=== PATIENT | male | born 1990 | race Caucasian/White ===

== ENCOUNTER 2019-11-01 00:30 | Observation (INO) | payer OTHER, SELFPAY ==
[2019-11-01 03:40] VITALS: BMI 39.6
[2019-11-01] MEDS ORDERED: MORPHINE 4 MG/ML SYR IV PRN (03:41)
[2019-11-01] MEDS ORDERED: ONDANSETRON 4 MG/2 ML VIAL IV PRN (03:41)
[2019-11-01] MEDS: Ringers Lactate 1,000 ML IV SCH ×3 (04:29→17:09)
[2019-11-01] MEDS ORDERED: CIPROFLOXACIN 400mg IV 400 MG/200 ML BAG IV SCH (05:00)
[2019-11-01] MEDS: METRONIDAZOLE 500mg IVPB 500 MG/100 ML BAG IV SCH ×2 (05:55→12:04)
[2019-11-01 06:19] LABS: Absolute Lymphocytes (CBC) 1.9 K/uL (0.7-4.9); Basophils % 0.2 % (0-1.3); Hematocrit 44.3 % (39.6-49.0); Lymphocytes % 14.4 % (15.3-44.8); MPV 9.9 fL (7.6-11.3); RBC Red Blood Cell Count 5.01 M/uL (4.33-5.43)
[2019-11-01] MEDS ORDERED: propofoL 200 MG/20 ML VIAL IV ONE (13:34)
[2019-11-01] MEDS ORDERED: ONDANSETRON 4 MG/2 ML VIAL ONE (13:34)
[2019-11-01] MEDS ORDERED: MIDAZOLAM HCL 2 MG/2 ML INJ ONE (13:34)
[2019-11-01] MEDS ORDERED: FENTANYL CITR 100 MCG/2 ML ONE (13:34)
[2019-11-01] MEDS ORDERED: GLYCOPYRROLATE 0.2 MG/ML SYR ONE (13:34)
[2019-11-01] MEDS ORDERED: LIDOCAINE 1% MPF 5 ML VIAL ONE (13:35)
[2019-11-01] MEDS ORDERED: MORPHINE 10 MG/ML VIAL ONE (13:35)
[2019-11-01] MEDS ORDERED: NEOSTIGMINE 1 MG/ML -5 ML ONE (13:35)
[2019-11-01] MEDS ORDERED: dexAMETHasone 4 MG/ML VIAL ONE (13:35)
[2019-11-01] MEDS ORDERED: ROCURONIUM 50 MG/5 ML VIAL IV ONE ×2 (13:35→14:46)
--- NOTE | 2019-11-01 13:56 | P.HP ---
Date of Service: 11/01/19 PC: This 29-year-old male presents to [facility] emergency room with severe right lower quadrant abdominal pain for diagnosis treatment. HPC: Patient is woke up yesterday with a abdominal pain. Was being made periumbilical. Over the course today in migrated to the right lower quadrant. At the current time he is comfortable. PMH: Hypertension in the past, resolved after having his sleep apnea treated. PSHx: Negative SOC: No known allergies, was on no medication but just reveals he is on Phen- Phen SYS REVIEW: No cough, wheeze, shortness of breath. No chest pain or palpitations. No urinary complaints O/E awake alert vital signs are stable HEENT: Within normal limits Chest: Clear ABD: Tender in the right lower quadrant. Mild guarding LOCO: Intact DATA: Elevated white cell count, CT scan demonstrates acute appendicitis IMPRESSION: Acute abdomen with appendicitis PLAN: I will take him the operating room for laparoscopic possible open appendectomy. The risks of this procedure have been discussed. The possibility of bleeding, infection, injury to bowel and blood vessels were described. The possible need for an open and/or further surgeries and procedures was discussed. He understands and wants us to proceed.
[2019-11-01] MEDS ORDERED: ETOMIDATE 20 MG/10 ML VIAL IV ONE (14:07)
[2019-11-01] MEDS ORDERED: KETOROLAC 30 MG/ML INJ ONE (14:29)
--- NOTE | 2019-11-01 15:16 | P.OP ---
Preoperative diagnosis: Acute abdomen Postoperative diagnosis: Acute appendicitis Primary procedure: Laparoscopic appendectomy Anesthesia: General Estimated blood loss: Less than 10 cc Specimen: 1 appendix Operative Technique: The patient was brought to the operating room, and placed supine on the table. After the induction of adequate general endotracheal anesthesia, the area of the abdomen was prepped with a DuraPrep solution, and was draped in the usual aseptic manner. A subumbilical incision was made. This was brought down through the skin and subcutaneous tissue. The Visiport was cavity and created pneumoperitoneum to approximately 12 mm of mercury. Under direct vision a 5 mm trocar was placed in the lower midline and another 5 mm in the right upper quadrant. The patient was then positioned in Trendelenburg and rolled to the left side. We were able to visualize right lower quadrant. There we could see an acutely inflamed appendix. There was no evidence of any rupture. The tip of the appendix lay just at the pelvic brim with some peritoneal attachments these intestines were taken down using judicious electro cautery . The appendix was then gently dissected from the surrounding structures. The junction of the appendix with the with the cecum was identified. An opening was made in the mesentery of the appendix. The 10 mm trocar was now converted to a 12 with the camera moved to the right upper port with a 5 mm view. The linear Stapler was introduced into the peritoneal cavity. It was placed across the base of the appendix and fired. A vascular reload was then placed into the Stapler. The mesentery of the appendix was then taken down. The appendix having been was placed into an Endo-Catch, brought out through the umbilical port site. Attention was turned back towards the right lower quadrant. The area was gently irrigated with the saline solution. The effluent was aspirated. 0.25% Marcaine was aerosolize into the right lower quadrant. Attention was turned towards the umbilical trocar. Using the endo-close, absorbable sutures were placed to close the defect. The patient was now returned to the neutral position on the OR table. The pneumoperitoneum was collapsed, the umbilical sutures tied, and fidencio applied to the skin. At the end of the procedure the patient was in stable condition and sent to the recovery room. Needle sponge and instrument count were correct. 1 specimen was sent for histopathology. Sterile dressings had been applied. Complications: None Transferred to: Recovery Room Condition: Good
[2019-11-01] MEDS: HYDROMORPHONE HCL 1 MG/ML INJ ONE ×2 (15:21→15:30)
[2019-11-01 16:03] VITALS: O2SAT 99
[2019-11-01] MEDS ORDERED: Levofloxacin500mg IV 500 MG/100 ML BAG IV SCH (17:00)
[2019-11-01] MEDS: MORPHINE 4 MG/ML SYR IV PRN ×2 (17:10→21:44)
[2019-11-01] MEDS: ONDANSETRON 4 MG/2 ML VIAL IV PRN ×2 (17:10→21:43)
[2019-11-01] MEDS: CIPROFLOXACIN 400mg IV 400 MG/200 ML BAG IV SCH (20:08)
[2019-11-02] MEDS: Ringers Lactate 1,000 ML IV SCH ×2 (00:30→12:23)
[2019-11-02] MEDS: MORPHINE 4 MG/ML SYR IV PRN (03:15)
[2019-11-02] MEDS: ONDANSETRON 4 MG/2 ML VIAL IV PRN (03:15)
[2019-11-02] MEDS: CIPROFLOXACIN 400mg IV 400 MG/200 ML BAG IV SCH (08:20)
--- NOTE | 2019-11-02 15:29 | P.PN ---
Date of Service: 11/02/19 S: Patient states he feels much improved. Has been up ambulating 3-4 times already today. Pain is managed well on oral medication he states. O: Incisions are clean vital signs are stable A: Stable status post laparoscopic appendectomy for acute appendicitis P: Discharge home, have him come see me or Sunday.
[2019-11-02 16:56] VITALS: BP 118/58; TEMP 98
== END 2019-11-02 17:29 | disposition home or self-care (01) ==
LOC: 2ND 00:30 → INTOOBSV 00:30
PROVIDERS: ADMIT Surgery; ATTEND Surgery
PROC: 0DTJ4ZZ Resection of Appendix, Percutaneous Endoscopic Approach (ICD-10-PCS; principal; 2019-11-01 14:00)
DX: K35.80 Unspecified acute appendicitis (principal); Z11.59 Encounter for screening for other viral diseases
CPT/HCPCS: 44970; 85025; 36415; 88304; U0002; J2250; J3010; J1170; J2710; G0378 ×4; J7120 ×5; J2405 ×5; J0744 ×3; J2704